=== PATIENT | male | born 1940 | race Caucasian/White ===

== ENCOUNTER → 2024-10-02 14:59 | Outpatient (REF) | payer OTHER, SELFPAY | LOC: RAD 14:59 | PROVIDERS: ATTENDING PHYSICIAN Nurse Practitioner Family | DX: M25.531 Pain in right wrist (principal); M25.532 Pain in left wrist; M25.431 Effusion, right wrist; M25.432 Effusion, left wrist | CPT/HCPCS: 73110; 73130 ==

== ENCOUNTER → 2025-03-10 12:56 | Outpatient (REF) | payer OTHER, SELFPAY | LOC: RAD 12:56 | PROVIDERS: ATTENDING PHYSICIAN Specialist; FAMILY PHYSICIAN Internal Medicine Geriatric Medicine | DX: R97.20 Elevated prostate specific antigen [PSA] (principal) | CPT/HCPCS: 74178; Q9967 ==